=== PATIENT | female | born 1955 | race Caucasian/White ===

== ENCOUNTER 2019-01-16 21:47 | Emergency (ER) | payer BC ==
[2019-01-16 21:52] VITALS: BP 164/104; PULSE 80; RESP 18; TEMP 98
[2019-01-16] MEDS ORDERED: ACET/COD 300 MG/30 MG STARTER PACK 6 TAB BTL PO STA (22:11)
[2019-01-16] MEDS ORDERED: CEPHALEXIN 500MG STARTER PACK 4 CAP BTL PO STA (22:11)
--- NOTE | 2019-01-16 22:11 | ED ---
Upper Extremity HPI - General Chief Complaint: Extremity Injury, Upper Stated Complaint: finger pain,swelling Time Seen by Provider: 01/16/19 21:58 Source: patient, RN notes reviewed Mode of arrival: ambulatory Limitations: no limitations - History of Present Illness Initial Comments: 63-year-old female presents emergency from chief complaint of right hand index finger pain. Patient states that she noticed increased swelling last 24 hours. Patient was not sure what happened patient did soak and symmetric consult. Patient reports no fevers or chills she is [id number] area patient has full range of motion states that finger feels tight in nature. - Related Data Previous Rx's Medication Instructions Recorded Cephalexin [Keflex] 500 mg PO Q6HR #40 cap 01/16/19 Allergies Allergy/AdvReac Type Severity Reaction Status Date / Time Sulfa (Sulfonamide Allergy Unknown Verified 01/16/19 21:52 Antibiotics) Review of Systems ROS Statement: Those systems with pertinent positive or pertinent negative responses have been documented in the HPI. ROS Other: All systems not noted in ROS Statement are negative. Past Medical History Past Medical History: Diabetes Mellitus, Hyperlipidemia, Hypertension History of Any Multi-Drug Resistant Organisms: None Reported Past Surgical History: Section, Orthopedic Surgery Past Psychological History: No Psychological Hx Reported Smoking Status: Never smoker Past Alcohol Use History: Rare Past Drug Use History: None Reported General Exam Limitations: no limitations General appearance: alert, in no apparent distress Head exam: Present: atraumatic, normocephalic, normal inspection Neck exam: Present: normal inspection. Absent: tenderness, meningismus, lymphadenopathy Respiratory exam: Present: normal lung sounds bilaterally. Absent: respiratory distress, wheezes, rales, rhonchi, stridor Cardiovascular Exam: Present: regular rate, normal rhythm, normal heart sounds. Absent: systolic murmur, diastolic murmur, rubs, gallop, clicks Extremities exam: Present: other (Right hand index finger there is some erythema in the distal portion primarily along the nail fold there is no large pocket of pus noted there is a small area and tenderness the nail fold patient has full range of motion neurovascular) Course Vital Signs 01/16/19 21:49 Temperature 98.0 F Pulse Rate 80 Respiratory 18 Rate Blood Pressure 164/104 O2 Sat by Pulse 99 Oximetry Medical Decision Making - Medical Decision Making 63-year-old female presented for finger pain. She has early paronychia. There is no area that needs to be open at this time. Patient will be placed on antibiotics. Patient advised to do warm soaks return for any worsening symptoms. Disposition Clinical Impression: Paronychia of finger of right hand Disposition: HOME SELF-CARE Condition: Stable Instructions (If sedation given, give patient instructions): Paronychia (ED) Additional Instructions: Please return to the Emergency Department if symptoms worsen or any other concerns. Prescriptions: Cephalexin [Keflex] 500 mg PO Q6HR #40 cap Is patient prescribed a controlled substance at d/c from ED?: No Referrals: Jake Izquierdo DO [Primary Care Provider] - 1-2 days Time of Disposition: 22:11
== END 2019-01-16 22:24 | disposition home or self-care (01) ==
LOC: EC 21:47
DX: L03.011 Cellulitis of right finger (principal); Z88.2 Allergy status to sulfonamides
CPT/HCPCS: 99283